=== PATIENT | male | born 1940 | race Caucasian/White ===

== ENCOUNTER 2019-08-22 06:00 | Day surgery (SDC) | payer OTHER ==
[~2019-08-22 06:00] MED LIST: ACTOS15 MG PO; AMARYL PO; ATACAND4 MG PO; LIPITOR20 MG PO; LOTREL 10-20 MG1 CAP PO
== END 2019-08-22 09:20 | disposition home or self-care (01) ==
LOC: AMB-ENDOS 06:00
DX: K62.89 Other specified diseases of anus and rectum (principal)